=== PATIENT | male | born 1990 | race Hispanic/Latino ===

== ENCOUNTER 2019-07-15 16:07 | Inpatient (IN) ==
[2019-07-15] MEDS ORDERED: NS 1,000 ML IV ONE (16:25)
[2019-07-15] MEDS ORDERED: ZOFRAN IV ONE (16:25)
[2019-07-15] MEDS ORDERED: DILAUDID IV ONE ×2 (16:25→20:16)
[2019-07-15 17:08] LABS: BASO# 0.23 X1000 (0.0-0.2); BASO% 1.4 % (0.0-0.8); EOS# 0.13 X1000 (0.0-0.7); EOS% 0.8 % (0.0-10.0); HEMATOCRIT 44.9 % (42.0-52.0); HEMOGLOBIN 16.8 g/dL (14.0-18.0); IMM GRAN# 0.04 X1000 (0.0-0.04); IMM GRAN% 0.2 % (0.0-0.5); LYMPH% 10.5 % (20.5-51.1); MCH 33.1 PG (27-31); MCHC 37.4 g/dL (33-37); MCV 88.6 FL (81-99); MONO% 8.6 % (1.7-9.3); MPV 12.9 FL (7.4-10.4); NEUT# 12.74 X1000 (1.4-6.5); NEUT% 78.5 % (42.2-75.2); PLT 254 X1000 (130-400); RBC 5.07 XMIL (4.7-6.1); RDW 13.5 % (11.5-14.5); WBC 16.24 X1000 (4.8-10.8)
--- NOTE | 2019-07-15 17:51 | Diag Imaging Result Doc PS360 ---
EXAM: US GB < RUQ (LIMITED) HISTORY: RUQ pain/tenderness TECHNIQUE: Right upper quadrant ultrasound COMPARISON: None. FINDINGS: Normal pancreatic head. The body and tail are predominantly obscured. Questionable 2.3 cm nodule in the pancreatic body. Normal inferior vena cava. No aortic aneurysm. There is fatty infiltration of the liver. Normal gallbladder. No stones. The gallbladder wall is not thickened. The common bile duct measures 3 mm. Normal right kidney. No hydronephrosis. No ascites in the right upper quadrant. IMPRESSION: 1.Fatty infiltration of the liver 2.Questionable pancreatic nodule. Electronically signed by Nelson Estrada 07/15/2019 5:49 PM
[2019-07-15] MEDS ORDERED: ZOSYN 3.375 GM in NS 50 ML IV ONE (18:02)
[2019-07-15 18:20] LABS: ESTIMATED GFR > 60
[2019-07-15 18:23] LABS: AGAP 18; ALB/GLOB RATIO 1.8; ALBUMIN 4.2 g/dL (3.5-5.0); ALKALINE PHOSPHATASE 116 U/L (32-122); BUN 14 mg/dL (8-22); CALCIUM 8.9 mg/dL (8.8-10.2); CHLORIDE 94 mmol/L (98-107); COSMO 264; CREATININE 0.9 mg/dL (0.7-1.2); GLUCOSE 106 mg/dL (70-104); GOT 52 U/L (10-34); GPT 73 U/L (10-44); LIPASE 1210 U/L (13-60); POTASSIUM 3.5 mmol/L (3.5-5.1); SODIUM 131 mmol/L (136-145); TCO2 19 mmol/L (25-35); TOTAL BILIRUBIN 0.46 mg/dL (0.20-1.00); TOTAL PROTEIN 6.6 g/dL (6.3-8.3)
--- NOTE | 2019-07-15 19:07 | Diag Imaging Result Doc PS360 ---
EXAM: CT ABD/PELVIS W/IV CONT ONLY HISTORY: epigastric/RUQ pain TECHNIQUE: CT abdomen and pelvis with intravenous contrast, but without oral contrast. COMPARISON: Recent ultrasound FINDINGS: There is fatty infiltration of the liver. No calcified gallstones or adjacent inflammation. There is prominent inflammation about the pancreas and duodenum. No pancreatic calcifications. No pseudocyst. There is thickening to the wall of the duodenum. No splenomegaly. Normal adrenal glands. Normal kidneys. No hydronephrosis. Normal aorta. No bowel obstruction. Normal appendix. The urinary bladder is distended and normal. Normal prostate. No abscess. IMPRESSION: Duodenitis versus pancreatitis This exam was performed using automated exposure control, adjustment of mA or kV according to patient size, and/or use of iterative reconstruction technique. Electronically signed by Nelson Estrada 07/15/2019 7:05 PM
[2019-07-15 19:28] LABS: URINE SOURCE CLEAN CATCH
[2019-07-15 19:38] LABS: BILIRUBIN URINE NEGATIVE (NEGATIVE); BLOOD URINE NEGATIVE (NEGATIVE); COLOR YELLOW; GLUCOSE URINE NEGATIVE (NEGATIVE); KETONE URINE 100 mg/dL (NEGATIVE); LEUKOCYTES URINE NEGATIVE (NEGATIVE); NITRITE URINE NEGATIVE (NEGATIVE); PH URINE 7.5; PROTEIN URINE NEGATIVE (NEGATIVE); SP GRAVITY URINE 1.027; TURBIDITY URINE CLEAR (CLEAR); UROBILINOGEN URINE NORMAL (NORMAL)
[2019-07-15 19:39] LABS: UR EPITHELIAL CELLS <10 /HPF (<10); URINE BACTERIA NEGATIVE /HPF; URINE RBC <10 /HPF (<10); URINE WBC <10 /HPF (<10)
[2019-07-15] MEDS ORDERED: LR 1,000 ML IV ONE (19:42)
--- NOTE | 2019-07-15 19:49 | PROVIDER DOCUMENTATION ---
This chart was entered by Sobia Davis Scribe, acting as scribe for Lorraine Pal CRNP. HPI-Abdominal Pain/GI Problem - General Stated Complaint: STOMACH PAIN Time Seen by Provider: 07/15/19 16:22 Source: patient, hired hand Allergies/Adverse Reactions: Patient Allergies Allergy/AdvReac Type Severity Reaction Status Date / Time No Known Allergies Allergy Verified 07/15/19 17:02 Home Medications: Home Medication List Medication Instructions Recorded Confirmed Last Taken Type NK [No Home Medications] 07/15/19 07/15/19 Unknown History - History of Present Illness-ABD Nature of Presenting Problems: pt is a 39 yr old male presenting with severe RUQ and epigastric pain with nausea and vomiting onset 0900 this AM. Denies any other complaints. Abdominal Pain Onset Location: reports: RUQ, epigastric Pain Radiation: reports: no radiation Severity in ED: reports: severe Onset/Duration: reports: this morning (0900) Timing: reports: still present, getting worse Exposure to sick contacts?: No Modifying Factors: improves with: nothing Associated Symptoms: reports: diarrhea, nausea, vomiting. denies: constipation, fever/chills, genitourinary problems, shortness of breath Last BM: unsure Dark Stools Present?: reports: none noticed Rectal Bleeding: reports: none Rectal Pain: reports: none Bruising or Bleeding Gums?: No Similar Symptoms Previously?: No Recently seen or treated by another doctor?: No Review of Systems - Adult - REVIEW OF SYSTEMS - ADULT Constitutional: reports: no symptoms reported. denies: chills, fever Eyes: reports: no symptoms reported Ears, Nose, Mouth & Throat: reports: no symptoms reported Cardiovascular: reports: no symptoms reported Respiratory: reports: no symptoms reported Gastrointestinal: reports: abdominal pain, diarrhea, nausea, vomiting Genitourinary: reports: no symptoms reported Musculoskeletal: reports: no symptoms reported Integumentary: reports: no symptoms reported Neurological: reports: no symptoms reported Psychiatric: reports: no symptoms reported Endocrine: reports: no symptoms reported Hematologic/Lymphatic: reports: no symptoms reported Allergic/Immunologic: reports: no symptoms reported All Other Systems: Reviewed and Negative Past History - Adult - PAST MEDICAL HISTORY-ADULT Review of Records: reports: Nursing Assessment Review, Medications Reviewed, Social history reviewed & non-contributory. Major Childhood Illnesses: reports: denies history Cardiovascular: reports: denies history Respiratory: reports: denies history Gastrointestinal: reports: denies history Obstetrical/Gynecological: reports: denies history Genitourinary: reports: denies history Musculoskeletal: reports: denies history Neurological: reports: denies history Endocrine/Immune: reports: denies history Other Conditions: reports: denies history - PRIOR SURGERIES/PROCEDURES Surgical/Procedure History: reports: none - IMMUNIZATION STATUS Childhood Immunizations: See Nurse Assessment Flu Vaccine: See Nurse Assessment - FAMILY HISTORY Family History: reviewed, not pertinent - SOCIAL HISTORY Smoking: denies Substance Use: none/never Alcohol Use Frequency: never Living Situation: family Physical Exam-General - PHYSICAL EXAM-ADULT Initial Vital Signs Reviewed: Yes - CONSTITUTIONAL General Appearance: alert, moderate distress (in pain). negative: lethargic, slow to respond - EYES Eyes: PERRL/EOMI - HEAD, EARS, NOSE, MOUTH & THROAT HENMT: normocephalic/atraumatic, moist mucous membranes - NECK Neck: full range of motion, supple, normal inspection - RESPIRATORY Respiratory: chest non-tender, lungs clear, normal breath sounds, no pleuratic chest pain, no respiratory distress, no accessory muscle use - CARDIOVASCULAR Cardiovascular: normal peripheral pulses, regular rate, rhythm, no gallop, no murmur - GASTROINTESTINAL (ABDOMEN) Abdominal Exam: normal bowel sounds, soft, guarding (epigastric region), tenderness (epigastric, ruq tenderness). negative: distended - LYMPHATIC Lymphatic: no adenopathy - MUSCULOSKELETAL Back Exam: normal inspection, no CVA tenderness Extremity: normal range of motion, non-tender, normal gait, normal inspection - SKIN Integumentary: normal color, warm/dry. negative: cyanosis, diaphoresis, jaundice, mottled, pallor - NEUROLOGIC Neurologic: grossly normal, no motor/sensory deficits - PSYCHIATRIC Psych/Mental Status: normal mood/affect, normal thought content, normal thought process, oriented x 3, tearful Progress - PLAN OF CARE/RESULTS Result Diagrams: 07/15/19 16:47 07/15/19 16:47 - REASSESSMENT Reassessment #1 Time Reassessed: 18:00 Status: improving (Pain improved. Pt asleep, easily arouseable.) Reassessment #2 Time Reassessed: 19:06 Status: other (Pt in agreement with plan to admit.) - EKG 1 Time of EKG reading by physician:: 16:17 EKG Read and Signed by:: Abdirizak Brewster EKG Interpretation (*Must complete 3 of following elements*): Abnormal Rate: 59 Rhythm: sinsu armida with sinus arrhythmia [place]: normal QRS: LVH (with STTW changes) [place] Interval: normal - CT/MRI 1 CT Study: Abdomen, Pelvis ([facility] - [address] [facility], [address], [place] [address] [facility] - [address] [place] [address] Department of Imaging Patient: EROS AGUILLONADM Date: 07/15/19#: [id number] : 04/06/1980ADM Status: REG ERAcct#: [id number] Age/Sex: 39/MRoom/Bed: Loc: ED Ordering Physician: Lorraine Pal Family Physician: None,PCP Reason for Procedure: epigastric/RUQ pain Signed EXAM: CT ABD/PELVIS W/IV CONT ONLY HISTORY: epigastric/RUQ pain TECHNIQUE: CT abdomen and pelvis with intravenous contrast, but without oral contrast. COMPARISON: Recent ultrasound FINDINGS: There is fatty infiltration of the shea er. No calcified gallstones or adjacent inflammation. There is prominent inflammation about the pancreas and duodenum. No pancreatic calcifications. No pseudocyst. There is thickening to the wall of the duodenum. No splenomegaly. Normal adrenal glands. Normal kidneys. No hydronephrosis. Normal aorta. No bowel obstruction. Normal appendix. The urinary bladder is distended and normal. Normal prostate. No abscess. IMPRESSION: Duodenitis versus pancreatitis This exam was performed using automated exposure control, adjustment of mA or kV according to patient size, and/or use of iterative reconstruction technique. Electronically signed by Nelson Estrada 07/15/2019 7:05 PM 07/15/19 1905 Interpreting Physician: Nelson Estrada MD Dictated Date/Time: 07/15/191900 cc: Lorraine Pal; None,PCP) - ULTRASOUND (By Radiology) 1 US Study: Gallbladder ([facility] - [address] , [address], [place] [address] [facility] - [address] [place] [address] Department of Imaging Patient: EROS AGUILLONADM Date: 07/15/19MR#: [id number] : 04/06/1980ADM Status: PRE ERAcct#: [id number] Age/Sex: 39/MRoom/Bed: Loc: ED Ordering Physician: Lorraine Pal Family Physician: None,PCP Reason for Procedure: RUQ pain/tenderness Signed EXAM: US GB < RUQ (LIMITED) HISTORY: RUQ pain/tenderness TECHNIQUE: Right upper quadrant ultrasound COMPARISON: None. FINDINGS: Normal pancreatic head. The body and tail are predominantly obscured. Questionable 2.3 cm nodule in the pancreatic body. Normal inferior vena cava. No aortic aneurysm. There is fatty infiltration of the liver. Normal gallbladder. No stones. The gallbladder wall is not thickened. The common bile duct measures 3 mm. Normal right kidney. No hydronephrosis. No ascites in the right upper quadrant. IMPRESSION: 1.Fatty infiltration of the liver 2.Questionable pancreatic nodule. Electronically signed by Nelson Estrada 07/15/2019 5:49 PM 07/15/199 Interpreting Physician: Nelson Estrada MD Dictated Date/Time: 07/15/191746 cc: Lorraine Pal; None,PCP) - CONSULTS/PCP/HOSPITALIST Notification #1 *Consult/PCP/Hospitalist*: Dr. Bourgeois Time Discussed: 19:48 Reason/Comments: admission- pancreatitis, possible duodenitis Consult Disposition: Will see in ED, Admit Departure - Departure Date of Disposition Decision: 07/15/19 Time of Disposition Decision: 18:56 DIAGNOSIS: Fatty liver, Duodenitis Acute pancreatitis Qualifiers: Pancreatitis type: unspecified pancreatitis type Acute pancreatitis complication: unspecified Qualified Code(s): K85.90 - Acute pancreatitis without necrosis or infection, unspecified Abdominal pain Qualifiers: Abdominal location: unspecified location Qualified Code(s): R10.9 - Unspecified abdominal pain Disposition: ADMITTED INPATIENT 09 Certified Medical Emergency: Emergent Condition: Stable Referrals and Follow-Ups: None,PCP [Primary Care Provider] - - Critical Care Note This patient required my direct & personal management of CC.: No Attestation - Physician/ LEAH Attestation Patient care was provided by Advanced Practice Provider:: Yes Advanced Practice Provider:: Lorraine Pal Advanced Practice Provider documentation review:: The Mid-level provider documentation, treatment plan and medical decision making was reviewed by the physician who agrees with all treatment and medical decision making by the MLP. The physician spent face to face time with patient:: Yes (Dr. Brewster) Advanced Practice Provider documentation review:: Supervising physician onsite and consulted in the evaluation and care of this patient. The physician did have a face to face encounter with the patient. This chart was documented by the indicated scribe, (Sobia Davis Scribe) and accurately reflects the services I performed and decisions made by me, Lorraine Pal CRNP, as attested by the provider's signature.
[2019-07-15] MEDS ORDERED: OFIRMEV 1000 MG/ISOTONIC SOLN 1,000 MG/100 ML BOTTLE IV SCH (20:30)
[2019-07-15 20:52] LABS: HEMOGLOBIN A1C 5.3 % (4.8-6.0)
--- NOTE | 2019-07-15 21:07 | HISTORY AND PHYSICAL ---
REASON FOR ADMISSION: One-day history of right upper quadrant and epigastric pain. HISTORY OF PRESENT ILLNESS: Mr. Brian is a 39-year-old man with no significant past medical history. He comes in today complaining of right upper quadrant epigastric pain, which he states started today. He says the pain radiates to his back. He admits to having nausea and has vomited once, at least in the ER, bilious content. History was very difficult to take from the patient because at the time I had seen him, he had received IV Dilaudid within an hour and he was somewhat drowsy. Suffice it to say, I had to keep waking him up to get some information from him. He denies any fever, chills, or any cardiorespiratory complaints. No polyuria or polydipsia. He did, however, tell me that he has been having dysuria for 1 week and I am not sure if he was confused on the medication, but he states he has had blood in his urine. He denies any bleeding from anywhere else, however. No focal neurological complaints. He denies any use of any recent [id number] medication. He says he takes medication for pain, but cannot remember the name. REVIEW OF SYSTEMS: Somewhat limited due to the fact the patient was very drowsy from sedation. ALLERGIES: He denies allergies. MEDICATIONS: He takes some unspecified pain medication for diffuse aches and pains. FAMILY HISTORY: He denies any diabetes or heart disease. He denies any surgery. Denies drinking, smoking, or using drugs. LABORATORY WORK: White count 6000, hemoglobin and hematocrit 16 and 44, platelets 234,000, neutrophils 78, 1.4, basophils. Sodium 131, potassium 3.5, BUN 14, creatinine 0.9, bicarb 19, anion gap 18, glucose 106, AST 52, ALT 73, lipase 1200. Serum alcohol was 0. Urinalysis positive for ketones. Specific gravity was 1.027. CT of the abdomen showed pancreatitis versus duodenitis and also fatty liver disease. PHYSICAL EXAMINATION: GENERAL: Drowsy, young man who is in mild distress from the pain. He is alert and oriented to person, place, and time. VITAL SIGNS: Heart rate 60, respiratory rate is 16, temperature is 97.9 degrees. He is 98% on 2 L. HEAD: Normocephalic and atraumatic. EYES: His pupils are miotic, but reactive. No icterus or pallor. OROPHARYNX: No cyanosis. NECK: Supple. No JVD visualized. No thyromegaly visualized. CHEST: Clear to auscultation. Good air entry in both lung corcoran. CARDIOVASCULAR: First and second heart sounds heard. No gallops, murmurs, rubs. Rhythm is regular. ABDOMEN: Full, soft, with marked tenderness in the epigastrium and right upper quadrant area. No peritoneal signs. Bowel sounds are hypoactive. RECTAL: Deferred at this time. EXTREMITIES: The patient has slightly diminished pulse volumes distally in all extremities, regular, symmetrical. No peripheral cyanosis or edema. NEUROLOGICAL: No gross focal neurological deficits. SKIN: Intact. No breakdown, lesions or erythema. MUSCULOSKELETAL: Exam is grossly normal. ASSESSMENT: 1. Acute pancreatitis. 2. Probable duodenitis. 3. Elevated transaminases, probably related to steatohepatitis. 4. Hypokalemia. PLAN: 1. The etiology of patient's pancreatitis is yet to be determined at this point in time. He does not drink, nor does he have any evidence of cholelithiasis, although there is still the possibility of microlithiasis. 2. We will check lipid panel for hypertriglyceridemia as a possible cause. 3. In the interim, we will keep patient n.p.o., administer lactated Ringer's, analgesia, antiemetics, and also proton pump inhibitors due to the possibility of pancreatitis induced duodenitis. 4. If patient fails to improve in the next 24 hours, GI may be consulted for further input. cc: Chanda Bourgeois MD
[2019-07-15] MEDS ORDERED: ZOFRAN IV PRN (21:18)
[2019-07-15] MEDS ORDERED: SODIUM CHLORIDE 0.9% INJ ONE (21:18)
[2019-07-15] MEDS ORDERED: TYLENOL PO PRN (21:18)
[2019-07-15] MEDS ORDERED: PROTONIX IV ONE (21:18)
[2019-07-15] MEDS: LR 1,000 ML IV SCH (22:31)
[2019-07-15] MEDS: LOVENOX SUBQ SCH (22:31)
[2019-07-15] MEDS: DILAUDID IV PRN (22:39)
[2019-07-16] MEDS: LR 1,000 ML IV SCH ×3 (03:28→15:25)
[2019-07-16] MEDS: DILAUDID IV PRN ×3 (05:08→20:28)
[2019-07-16 06:52] LABS: BASO# 0.02 X1000 (0.0-0.2); BASO% 0.2 % (0.0-0.8); HEMATOCRIT 43.8 % (42.0-52.0); HEMOGLOBIN 15.6 g/dL (14.0-18.0); IMM GRAN# 0.02 X1000 (0.0-0.04); IMM GRAN% 0.2 % (0.0-0.5); LYMPH# 0.75 X1000 (1.2-3.4); LYMPH% 6.9 % (20.5-51.1); MCH 31.8 PG (27-31); MCHC 35.6 g/dL (33-37); MCV 89.2 FL (81-99); MONO# 0.51 X1000 (0.11-0.59); MONO% 4.7 % (1.7-9.3); MPV 12.1 FL (7.4-10.4); NEUT# 9.53 X1000 (1.4-6.5); PLT 188 X1000 (130-400); RBC 4.91 XMIL (4.7-6.1); RDW 13.5 % (11.5-14.5); WBC 10.83 X1000 (4.8-10.8)
[2019-07-16 07:16] LABS: BANDS 8 % (0-1); LYMPHS 10 % (21-51); SEGS 80 % (42-75)
[2019-07-16 07:39] LABS: AGAP 14; ALB/GLOB RATIO 1.4; ALBUMIN 3.3 g/dL (3.5-5.0); ALKALINE PHOSPHATASE 81 U/L (32-122); BUN 8 mg/dL (8-22); CHLORIDE 99 mmol/L (98-107); CHOLESTEROL 209 mg/dL (0-200); COSMO 266; CREATININE 0.7 mg/dL (0.7-1.2); ESTIMATED GFR > 60; GLUCOSE 89 mg/dL (70-104); GPT 50 U/L (10-44); HDL 16 mg/dL (35-55); MAGNESIUM 1.5 mg/dL (1.5-2.7); POTASSIUM 3.5 mmol/L (3.5-5.1); TCO2 21 mmol/L (25-35); TOTAL BILIRUBIN 0.57 mg/dL (0.20-1.00); TOTAL PROTEIN 5.7 g/dL (6.3-8.3); TRIGLYCERIDES 1580 mg/dL (39-160)
[2019-07-16 07:41] LABS: CALCIUM 7.1 mg/dL (8.8-10.2); GOT 41 U/L (10-34); SODIUM 134 mmol/L (136-145)
[2019-07-16] MEDS: LOFIBRA PO SCH (17:14)
--- NOTE | 2019-07-16 18:51 | PROGRESS NOTE ---
DATE: 07/16/2019 INTERVAL HISTORY: Mr. Brian continues to have tachycardia and abdominal pain. He is thirsty and wanted to drink something. I used rack pusher services to elicit history and accordingly I learned that day before yesterday he started having abdominal pain and nausea and vomiting after drinking water. He states he recently migrated from [place]. He is not fluent with [place]. REVIEW OF SYSTEMS: Positive for nausea. Positive for vomiting. Positive for abdominal pain. Positive for thirst. PHYSICAL EXAMINATION: vital signs: Temperature of 98 degrees, pulse is 86, respiratory 18, blood pressure 110/66, and he is saturating 99% on room air. general: In mild to moderate distress because of abdominal pain. heent: Oral cavity is dry. Lungs: Air entry bilaterally equal. No wheeze, rhonchi, or crackles. Cardiovascular: S1, S2 normal. Tachycardic on my examination. No murmur, rub, or gallop. Abdomen: Soft. He has generalized tenderness. Hypoactive bowel sounds. Abdomen appears firm though there is no rigidity. I could not do deep palpation to elicit any rebound. Extremities: He does not have any lower extremity edema. Neurologic: He is alert and oriented x3 and has been following commands. ASSESSMENT AND PLAN: Acute pancreatitis. Likely induced by hypertriglyceridemia which was detected to be as high as 1500. I will continue intravenous fluid resuscitation with lactated Ringer's. I will treat his acute duodenitis with intravenous pantoprazole and start him on clear liquid diet. I will also start him on fenofibrate for his hypertriglyceridemia. I will continue intravenous hydromorphone as needed for pain. His hypocalcemia and hypoalbuminemia are a bad prognosticator and we will keep a close eye over his laboratories. So far blood culture has not shown any growth. He has not had any fever to suggest sepsis. I will continue to monitor him in bed. Through the rack pusher I allowed him to ask questions. All of his questions have been answered. cc: Salbador Grant MD
[2019-07-16] MEDS: SODIUM CHLORIDE 0.9% INJ SCH (20:20)
[2019-07-16] MEDS: LOVENOX SUBQ SCH (20:21)
[2019-07-16] MEDS ORDERED: PROTONIX IV SCH (20:30)
[2019-07-17] MEDS: DILAUDID IV PRN ×5 (04:12→23:25)
[2019-07-17 06:59] LABS: BASO# 0.02 X1000 (0.0-0.2); BASO% 0.2 % (0.0-0.8); EOS# 0.12 X1000 (0.0-0.7); EOS% 1.2 % (0.0-10.0); HEMATOCRIT 43.2 % (42.0-52.0); HEMOGLOBIN 14.8 g/dL (14.0-18.0); IMM GRAN# 0.03 X1000 (0.0-0.04); IMM GRAN% 0.3 % (0.0-0.5); LYMPH# 1.11 X1000 (1.2-3.4); LYMPH% 11.1 % (20.5-51.1); MCH 30.9 PG (27-31); MCHC 34.3 g/dL (33-37); MCV 90.2 FL (81-99); MONO# 0.46 X1000 (0.11-0.59); MONO% 4.6 % (1.7-9.3); MPV 12.8 FL (7.4-10.4); NEUT# 8.27 X1000 (1.4-6.5); NEUT% 82.6 % (42.2-75.2); PLT 168 X1000 (130-400); RBC 4.79 XMIL (4.7-6.1); RDW 13.9 % (11.5-14.5); WBC 10.01 X1000 (4.8-10.8)
[2019-07-17 07:04] LABS: INR 1.31; PROTIME 16.5 Seconds (11.0-16.0)
[2019-07-17 07:06] LABS: PTT 34.7 Seconds (22.3-41.8)
[2019-07-17 07:32] LABS: AGAP 13; ALB/GLOB RATIO 1.1; ALBUMIN 2.6 g/dL (3.5-5.0); ALKALINE PHOSPHATASE 70 U/L (32-122); BUN 9 mg/dL (8-22); CALCIUM 7.4 mg/dL (8.8-10.2); CHLORIDE 96 mmol/L (98-107); COSMO 260; CREATININE 0.8 mg/dL (0.7-1.2); ESTIMATED GFR > 60; GLUCOSE 74 mg/dL (70-104); GOT 25 U/L (10-34); GPT 30 U/L (10-44); POTASSIUM 3.4 mmol/L (3.5-5.1); SODIUM 131 mmol/L (136-145); TCO2 22 mmol/L (25-35); TOTAL BILIRUBIN 0.67 mg/dL (0.20-1.00)
[2019-07-17] MEDS: LR 1,000 ML IV SCH ×4 (08:29→22:26)
[2019-07-17] MEDS: LOFIBRA PO SCH (08:30)
[2019-07-17] MEDS: PROTONIX IV SCH ×2 (08:33→18:46)
--- NOTE | 2019-07-17 09:31 | PROGRESS NOTE ---
DATE: 07/17/2019 INTERVAL HISTORY: Mr. Brian's vitals were unremarkable. He continues to have abdominal pain. I used motor vehicle parts interpreter services to communicate with him. He complains of persistent abdominal pain. He complains of nausea. He states that the pain has pretty much remained the same as yesterday and has not shown any signs of improvement. He also mentioned that he was admitted for similar complaints probably 3 months ago at [facility]. He was there for 3 hours and was discharged home. I have requested those records. He denies any known allergy to intravenous contrast. VITALS: Currently, temperature 98.8 degrees, pulse 95, respiratory rate 20, blood pressure 121/63, he is saturating 95% on room air. PHYSICAL EXAMINATION: Mr. Brian denies any new complaints. Oral cavity is dry. Lungs: Air entry bilaterally equal. No wheeze, rhonchi, or crackles. He continues to have shallow respirations. Cardiovascular: S1, S2 normal. No murmur, rub, or gallop. Abdomen: Active bowel sounds. Generalized tenderness. I could not do deep palpation because of severe abdominal pain. No lower extremity edema. He is alert and oriented x3. LABS: Declining WBCs to 10,000, hemoglobin 14.8, platelet count 168,000. INR is 1.3. He does have hyponatremia with sodium 131, chloride 96, and potassium of 3.4, his BUN is 9, creatinine 0.8. His lactate is pending. His liver function tests are normalizing. MICROBIOLOGY: Blood culture did not have any growth. ASSESSMENT AND PLAN: 1. Acute pancreatitis and acute duodenitis. Continue lactated Ringer's, intravenous fluids, intravenous hydromorphone for pain management, and increase the frequency of intravenous pantoprazole to every 12 hours. I will continue intravenous Zofran as needed for vomiting. It is possible his acute pancreatitis is related to hypertriglyceridemia and I have started him on fenofibrate. I will get a repeat CT scan of the abdomen and pelvis with contrast to evaluate his duodenitis and pancreatitis better to rule out any pancreatic necrosis, to rule out any duodenal perforation considering he continues to have severe abdominal pain and his abdomen has a firm feel to it with guarding. 2. Others. Continue enoxaparin for deep venous thrombosis prophylaxis; his hypokalemia is currently being repleted. 3. Disposition. I will continue to monitor the patient inside the hospital as I await CT scan of the abdomen. Plan of care was discussed with him. His questions have been satisfactorily answered. cc: Salbador Grant MD
--- NOTE | 2019-07-17 09:51 | Diag Imaging Result Doc PS360 ---
EXAM: CT ABD/PELVIS W/PO AND IV CON - 07/17/2019 HISTORY: Persistent abd pain. Eval for duodenal perf/pancreatitis TECHNIQUE: CT abdomen/pelvis with oral and intravenous contrast COMPARISON: 07/15/2019 CT abdomen/pelvis with intravenous contrast FINDINGS: There has been development of bilateral pleural effusions with adjacent dependent/compressive atelectasis. There is been interval increase in peripancreatic inflammation/edema. There is increased extension of the peripancreatic formation/edema probably peripancreatic region, particularly posterior laterally and inferiorly. There is a small to moderate amount of ascites. These findings are consistent with worsened acute pancreatitis. There is no discrete pancreatic necrosis. There is no discrete focal pseudocyst. There is some dense bile in gallbladder. There are no discrete calcified gallstones or substantial gallbladder wall thickening identified. There is no extraluminal gas collection to suggest perforated ulcer. There is no evidence of bowel obstruction. There is no free air or abscess identified. There is possibly mild fatty infiltration of the liver. There is no evidence of focal liver lesion, other than a tiny cyst. There are no substantial abnormalities of the spleen, adrenal glands, or pancreas5. There is stable borderline retroperitoneal lymph nodes. IMPRESSION: Increased findings of acute pancreatitis compared to prior. No discrete pancreatic necrosis. No evidence of perforated ulcer. This exam was performed using automated exposure control, adjustment of mA or kV according to patient size, and/or use of iterative reconstruction technique. Electronically signed by Darren Luong 07/17/2019 9:48 AM
[2019-07-17] MEDS: POTASSIUM CHLORIDE 20 MEQ/SWI 20 MEQ/100 ML IVPB IV SCH ×2 (12:22→14:34)
[2019-07-17] MEDS: LOVENOX SUBQ SCH (22:29)
[2019-07-18] MEDS: DILAUDID IV PRN ×6 (04:02→21:42)
[2019-07-18] MEDS: SODIUM CHLORIDE 0.9% INJ SCH (06:30)
[2019-07-18] MEDS: PROTONIX IV SCH ×2 (06:30→18:36)
[2019-07-18 07:30] LABS: AGAP 12; ALB/GLOB RATIO 1.4; ALBUMIN 2.9 g/dL (3.5-5.0); ALKALINE PHOSPHATASE 68 U/L (32-122); BUN 5 mg/dL (8-22); CALCIUM 7.7 mg/dL (8.8-10.2); CHLORIDE 97 mmol/L (98-107); COSMO 262; CREATININE 0.6 mg/dL (0.7-1.2); ESTIMATED GFR > 60; GLUCOSE 76 mg/dL (70-104); GOT 19 U/L (10-34); GPT 23 U/L (10-44); POTASSIUM 3.7 mmol/L (3.5-5.1); SODIUM 133 mmol/L (136-145); TCO2 24 mmol/L (25-35); TOTAL BILIRUBIN 0.59 mg/dL (0.20-1.00)
--- NOTE | 2019-07-18 08:16 | EKG Report ---
Test Performed on : 07/15/2019 4:33:25 PM Test Reason : ED. NO EKG ORDER FOR MUSE Blood Pressure : / mmHG Vent. Rate : 059 BPM Atrial Rate : 059 BPM P-R Int : 130 ms QRS Dur : 086 ms QT Int : 466 ms P-R-T Axes : 091 083 049 degrees QTc Int : 461 ms Sinus bradycardia. with sinus arrhythmia. Minimal voltage criteria for LVH, may be normal variant Borderline ECG No previous ECGs available Unconfirmed Result
[2019-07-18] MEDS: LOFIBRA PO SCH (10:20)
[2019-07-18] MEDS: LR 1,000 ML IV SCH ×4 (10:21→17:37)
[2019-07-18] MEDS: ZOSYN 3.375 GM in NS 50 ML IV SCH ×2 (13:36→21:41)
[2019-07-18 14:33] LABS: BASO# 0.02 X1000 (0.0-0.2); BASO% 0.2 % (0.0-0.8); EOS# 0.24 X1000 (0.0-0.7); EOS% 2.5 % (0.0-10.0); HEMATOCRIT 41.2 % (42.0-52.0); IMM GRAN# 0.05 X1000 (0.0-0.04); IMM GRAN% 0.5 % (0.0-0.5); LYMPH# 0.94 X1000 (1.2-3.4); MCH 30.9 PG (27-31); MCV 90.9 FL (81-99); MONO# 0.65 X1000 (0.11-0.59); MONO% 6.9 % (1.7-9.3); MPV 11.6 FL (7.4-10.4); NEUT# 7.52 X1000 (1.4-6.5); NEUT% 79.9 % (42.2-75.2); PLT 196 X1000 (130-400); RBC 4.53 XMIL (4.7-6.1); WBC 9.42 X1000 (4.8-10.8)
[2019-07-18] MEDS ORDERED: LR 1,000 ML IV ONE (16:36)
[2019-07-18 16:58] LABS: AGAP 11; ALB/GLOB RATIO 1.5; ALBUMIN 3.2 g/dL (3.5-5.0); ALKALINE PHOSPHATASE 78 U/L (32-122); BUN 5 mg/dL (8-22); CALCIUM 8.1 mg/dL (8.8-10.2); CHLORIDE 92 mmol/L (98-107); COSMO 255; CREATININE 0.7 mg/dL (0.7-1.2); ESTIMATED GFR > 60; GLUCOSE 78 mg/dL (70-104); GOT 22 U/L (10-34); GPT 23 U/L (10-44); POTASSIUM 3.2 mmol/L (3.5-5.1); SODIUM 129 mmol/L (136-145); TCO2 26 mmol/L (25-35); TOTAL BILIRUBIN 0.72 mg/dL (0.20-1.00); TOTAL PROTEIN 5.3 g/dL (6.3-8.3)
--- NOTE | 2019-07-18 17:17 | PROGRESS NOTE ---
DATE: 07/18/2019 SUBJECTIVE: The patient is still having a lot of pain. He does look like he is in a lot of pain. OBJECTIVE: Vital Signs: He has a little bit of a temp today. Blood pressure is 126/77, heart rate 109, respiratory rate 16, temp 100.4 degrees. Cardiovascular: Tachy, somewhat hyperdynamic. Lungs: Breath sounds clear to auscultation. GI: Soft, nontender, nondistended. Bowel sounds are positive. He is chip applying machine tender to palpation on exam. LABORATORY DATA: White count is down to 9, hemoglobin and hematocrit 14 and 41, platelets 196,000. Sodium 133, albumin 2.9. Lipase is down to 111 from 1,210 which is a big improvement. He does have very elevated triglycerides though, 1,580. PROBLEM LIST: 1. Acute pancreatitis. We will continue IV fluids, pain control, IV PPI, although there is little evidence antibiotics play a role here. He does not have pancreatic necrosis. Until he is afebrile I am just going to cover him with Zosyn. We will bolus him another liter today and increase his IV fluids. His numbers look better. His hematocrit is down below 44% which is a positive predictor, although we are looking at that has been achieved over 4 days. He is still clinically looks like he is uncomfortable. I think pancreatitis may be multifactorial, not just alcohol abuse but also hypertriglyceridemia. This may need to be addressed as an outpatient. 2. Alcohol abuse. We counseled on cessation. DISPOSITION: Pending clinical status but I do not think he is ready to go anywhere just yet, maybe another 1 to 2 days. cc: Rogelio Alvarado MD
[2019-07-18] MEDS: LOVENOX SUBQ SCH (21:41)
[2019-07-18] MEDS: NORCO-7.5 PO PRN (23:19)
[2019-07-19] MEDS: DILAUDID IV PRN ×2 (02:23→07:51)
[2019-07-19] MEDS: LR 1,000 ML IV SCH ×4 (03:00→13:45)
[2019-07-19] MEDS: ZOSYN 3.375 GM in NS 50 ML IV SCH ×4 (03:02→20:23)
[2019-07-19 06:29] LABS: BASO# 0.03 X1000 (0.0-0.2); BASO% 0.3 % (0.0-0.8); EOS% 4.4 % (0.0-10.0); HEMATOCRIT 38.7 % (42.0-52.0); HEMOGLOBIN 13.2 g/dL (14.0-18.0); IMM GRAN# 0.06 X1000 (0.0-0.04); IMM GRAN% 0.7 % (0.0-0.5); LYMPH# 1.07 X1000 (1.2-3.4); LYMPH% 11.8 % (20.5-51.1); MCH 31.2 PG (27-31); MCHC 34.1 g/dL (33-37); MCV 91.5 FL (81-99); MONO# 1.04 X1000 (0.11-0.59); MONO% 11.5 % (1.7-9.3); MPV 11.5 FL (7.4-10.4); NEUT# 6.45 X1000 (1.4-6.5); NEUT% 71.3 % (42.2-75.2); PLT 200 X1000 (130-400); RBC 4.23 XMIL (4.7-6.1); RDW 13.8 % (11.5-14.5); WBC 9.05 X1000 (4.8-10.8)
[2019-07-19] MEDS: NORCO-7.5 PO PRN ×3 (06:29→20:23)
[2019-07-19] MEDS: PROTONIX IV SCH ×2 (06:36→18:04)
[2019-07-19] MEDS: SODIUM CHLORIDE 0.9% INJ SCH ×2 (06:36→18:05)
[2019-07-19] MEDS: LOFIBRA PO SCH ×2 (07:51→10:47)
[2019-07-19] MEDS ORDERED: ZOSYN ONE (13:11)
[2019-07-19] MEDS ORDERED: ATIVAN IV ONE (16:18)
[2019-07-19] MEDS ORDERED: ATIVAN IV PRN (16:18)
--- NOTE | 2019-07-19 16:42 | PROGRESS NOTE ---
DATE: 07/19/2019 SUBJECTIVE: He does not look as toxic as he did before. He is still having some pain but overall has improved. No nausea, no vomiting. OBJECTIVE: Vital signs: I do not think he has had any more fevers. Blood pressure is 127/75, heart rate of 111, respiratory rate 18, temperature 99 degrees, 94% on room air. Cardiovascular: He is still a bit tachy. I am not entirely sure if that is from the pancreatitis or possibly some withdrawal. I am going to start him on a banana bag in addition to his LR. Again, regular rate and rhythm. Pulmonary: Bilateral breath sounds clear to auscultation. 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 No rebound. No guarding. LABORATORY DATA: White count 9, hemoglobin and hematocrit 13 and 38, platelets 200,000. I do not have a basic today except lipase is 62. ASSESSMENT AND PLAN: 1. Overall I think he is improving, probably advance diet tomorrow if he is stable, may be able to go home. 2. Alcohol abuse. He was advised on cessation. He does not have any p.r.n. Ativan. Probably will give him a little bit of Ativan and see if he will relax and continue to follow. DISPOSITION: Anticipate discharge tomorrow. cc: Rogelio Alvarado MD
[2019-07-19] MEDS: POTASSIUM CHLORIDE 20 MEQ, MAGNESIUM SULFATE 2 GM, THIAMINE 100 MG, FOLIC ACID 1 MG, M.... IV SCH ×6 (18:10)
[2019-07-19] MEDS: LOVENOX SUBQ SCH (20:23)
[2019-07-20] MEDS: LR 1,000 ML IV SCH ×5 (00:11→18:56)
[2019-07-20] MEDS: DILAUDID IV PRN ×5 (00:37→22:48)
[2019-07-20] MEDS: ZOSYN 3.375 GM in NS 50 ML IV SCH ×3 (02:59→14:15)
[2019-07-20] MEDS: NORCO-7.5 PO PRN (03:01)
[2019-07-20] MEDS: POTASSIUM CHLORIDE 20 MEQ, MAGNESIUM SULFATE 2 GM, THIAMINE 100 MG, FOLIC ACID 1 MG, M.... IV SCH ×12 (06:19→14:20)
[2019-07-20 06:24] LABS: BASO# 0.02 X1000 (0.0-0.2); BASO% 0.2 % (0.0-0.8); EOS# 0.42 X1000 (0.0-0.7); EOS% 5.1 % (0.0-10.0); HEMATOCRIT 39.2 % (42.0-52.0); HEMOGLOBIN 13.1 g/dL (14.0-18.0); IMM GRAN# 0.05 X1000 (0.0-0.04); IMM GRAN% 0.6 % (0.0-0.5); LYMPH# 0.86 X1000 (1.2-3.4); LYMPH% 10.4 % (20.5-51.1); MCH 30.7 PG (27-31); MCHC 33.4 g/dL (33-37); MCV 91.8 FL (81-99); MONO# 1.11 X1000 (0.11-0.59); MONO% 13.4 % (1.7-9.3); MPV 10.7 FL (7.4-10.4); NEUT# 5.81 X1000 (1.4-6.5); NEUT% 70.3 % (42.2-75.2); PLT 243 X1000 (130-400); RBC 4.27 XMIL (4.7-6.1); RDW 13.8 % (11.5-14.5); WBC 8.27 X1000 (4.8-10.8)
[2019-07-20 06:54] LABS: AGAP 10; ALB/GLOB RATIO 0.9; ALBUMIN 2.9 g/dL (3.5-5.0); ALKALINE PHOSPHATASE 94 U/L (32-122); BUN 3 mg/dL (8-22); CALCIUM 8.1 mg/dL (8.8-10.2); CHLORIDE 100 mmol/L (98-107); COSMO 272; CREATININE 0.7 mg/dL (0.7-1.2); ESTIMATED GFR > 60; GLUCOSE 124 mg/dL (70-104); GOT 19 U/L (10-34); GPT 20 U/L (10-44); LIPASE 43 U/L (13-60); POTASSIUM 3.3 mmol/L (3.5-5.1); SODIUM 137 mmol/L (136-145); TCO2 27 mmol/L (25-35); TOTAL BILIRUBIN 0.55 mg/dL (0.20-1.00); TOTAL PROTEIN 6.1 g/dL (6.3-8.3)
[2019-07-20] MEDS: SODIUM CHLORIDE 0.9% INJ SCH ×2 (07:01→17:21)
[2019-07-20] MEDS: PROTONIX IV SCH ×3 (07:01→20:42)
[2019-07-20] MEDS ORDERED: ZOSYN ONE (09:20)
[2019-07-20] MEDS: LOFIBRA PO SCH (09:27)
[2019-07-20] MEDS: POTASSIUM CHLORIDE 20 MEQ/SWI 20 MEQ/100 ML IVPB IV SCH ×2 (18:03→20:42)
[2019-07-20 18:28] LABS: URINE SOURCE CLEAN CATCH
--- NOTE | 2019-07-20 18:30 | PROGRESS NOTE ---
DATE: 07/20/2019 SUBJECTIVE: Patient has no major complaints. OBJECTIVE: Blood pressure is 122/70, heart rate 102, respiratory rate of 18, temperature afebrile, and 98% on room air.Cardiovascular: Regular rate and rhythm. Pulmonary: Bilateral breath sounds. Clear to auscultation. GI: Soft, nontender, and nondistended. Bowel sounds are positive. LABORATORY: White count 8, hemoglobin and hematocrit 13 and 39, and platelets 243,000, potassium 3.3, and albumin 2.9. His lipase is down to 43, but he is having persistent fevers. PROBLEMS: 1. Acute on chronic pancreatitis or acute pancreatitis. He seems to be doing better. We are going to continue to see how he does, but it is unclear if the fevers are related to pancreatitis, is he developing infected pseudocyst. He does not look too bad except for the fevers and persistent tachycardia. 2. Alcohol withdrawal syndrome. It is certainly possible this could be some withdrawal, but overall he is improving. 3. Fevers. We will check a UA and chest x-ray. If he has persistent fevers, I am going to repeat a CT to evaluate for infection. I have also consulted GI for their opinion. He is on Zosyn. This will be day 2. Continue to follow closely. cc: Rogelio Alvarado MD MTDD
[2019-07-20 18:33] LABS: BILIRUBIN URINE NEGATIVE (NEGATIVE); BLOOD URINE NEGATIVE (NEGATIVE); COLOR YELLOW; GLUCOSE URINE NEGATIVE (NEGATIVE); KETONE URINE NEGATIVE (NEGATIVE); LEUKOCYTES URINE NEGATIVE (NEGATIVE); NITRITE URINE NEGATIVE (NEGATIVE); PROTEIN URINE TRACE mg/dL (NEGATIVE); SP GRAVITY URINE 1.009; TURBIDITY URINE CLEAR (CLEAR); UROBILINOGEN URINE NORMAL (NORMAL)
--- NOTE | 2019-07-20 18:33 | Diag Imaging Result Doc PS360 ---
EXAM: CHEST-2 VIEWS HISTORY: fever TECHNIQUE: Two views COMPARISON: None. FINDINGS: There are left lower lobe infiltrates. There are small bilateral pleural effusions with basilar atelectasis. No cardiomegaly. No pulmonary edema. IMPRESSION: Basilar infiltrates with small pleural effusions Electronically signed by Nelson Estrada 07/20/2019 6:30 PM
[2019-07-20 18:35] LABS: UR EPITHELIAL CELLS <10 /HPF (<10); URINE BACTERIA NEGATIVE /HPF; URINE RBC <10 /HPF (<10); URINE WBC <10 /HPF (<10)
[2019-07-20] MEDS: LOVENOX SUBQ SCH (20:42)
[2019-07-21] MEDS: ZOSYN 3.375 GM in NS 50 ML IV SCH ×5 (01:03→18:32)
[2019-07-21] MEDS: SODIUM CHLORIDE 0.9% INJ SCH (04:44)
[2019-07-21] MEDS: PROTONIX IV SCH ×3 (04:44→18:32)
[2019-07-21] MEDS: NORCO-7.5 PO PRN ×3 (04:47→20:03)
[2019-07-21] MEDS: LR 1,000 ML IV SCH ×4 (05:46→17:38)
[2019-07-21 07:15] LABS: BASO# 0.01 X1000 (0.0-0.2); BASO% 0.1 % (0.0-0.8); EOS# 0.32 X1000 (0.0-0.7); HEMATOCRIT 40.4 % (42.0-52.0); HEMOGLOBIN 13.2 g/dL (14.0-18.0); IMM GRAN# 0.04 X1000 (0.0-0.04); IMM GRAN% 0.4 % (0.0-0.5); LYMPH# 1.01 X1000 (1.2-3.4); LYMPH% 9.4 % (20.5-51.1); MCH 30.1 PG (27-31); MCHC 32.7 g/dL (33-37); MONO# 0.98 X1000 (0.11-0.59); MONO% 9.1 % (1.7-9.3); MPV 10.6 FL (7.4-10.4); NEUT# 8.42 X1000 (1.4-6.5); PLT 297 X1000 (130-400); RBC 4.39 XMIL (4.7-6.1); RDW 13.5 % (11.5-14.5); WBC 10.78 X1000 (4.8-10.8)
[2019-07-21] MEDS: DILAUDID IV PRN ×2 (07:21→17:31)
[2019-07-21 07:37] LABS: AGAP 13; ALB/GLOB RATIO 1.1; ALBUMIN 3.3 g/dL (3.5-5.0); ALKALINE PHOSPHATASE 138 U/L (32-122); BUN 7 mg/dL (8-22); CALCIUM 8.6 mg/dL (8.8-10.2); CHLORIDE 98 mmol/L (98-107); COSMO 269; CREATININE 0.7 mg/dL (0.7-1.2); ESTIMATED GFR > 60; GLUCOSE 115 mg/dL (70-104); GOT 29 U/L (10-34); GPT 22 U/L (10-44); POTASSIUM 3.7 mmol/L (3.5-5.1); SODIUM 135 mmol/L (136-145); TCO2 24 mmol/L (25-35); TOTAL BILIRUBIN 0.57 mg/dL (0.20-1.00); TOTAL PROTEIN 6.4 g/dL (6.3-8.3)
[2019-07-21] MEDS: LOFIBRA PO SCH (08:09)
[2019-07-21] MEDS ORDERED: M V I IV SCH ×6 (09:00)
[2019-07-21] MEDS ORDERED: MAGNESIUM SULFATE IV SCH ×6 (09:00)
[2019-07-21] MEDS ORDERED: FOLIC ACID IV SCH ×6 (09:00)
[2019-07-21] MEDS ORDERED: [UNRECOGNIZED DRUG - OTHER] IV SCH ×6 (09:00)
[2019-07-21] MEDS ORDERED: THIAMINE IV SCH ×6 (09:00)
[2019-07-21] MEDS: ZOSYN ONE (10:46)
--- NOTE | 2019-07-21 16:33 | PROGRESS NOTE ---
DATE: 07/21/2019 SUBJECTIVE: He looks better today. No pain. He still having a little bit of fever. He had 100 degrees temp yesterday at 3 but none since then.Cardiovascular: Regular rate and rhythm. Pulmonary: Bilateral breath sounds clear to auscultation. GI: Was soft, nontender, nondistended. Bowel sounds are positive. Now, his chest x-ray does show some lower lobe infiltrates, so this could be atelectasis versus pneumonia. We have a put him on Zosyn and I am going to keep that for the time being. Acute on chronic pancreatitis. That appears to be better. DISPOSITION: I think if he is afebrile tomorrow probably let him go home. cc: Rogelio Alvarado MD
[2019-07-21] MEDS: LOVENOX SUBQ SCH ×2 (20:03→23:07)
[2019-07-22] MEDS: ZOSYN 3.375 GM in NS 50 ML IV SCH ×4 (00:13→13:04)
[2019-07-22] MEDS: PROTONIX IV SCH ×2 (04:44→06:39)
[2019-07-22] MEDS: SODIUM CHLORIDE 0.9% INJ SCH (04:45)
[2019-07-22] MEDS: DILAUDID IV PRN ×2 (04:47→13:09)
[2019-07-22 06:31] LABS: BASO# 0.02 X1000 (0.0-0.2); BASO% 0.2 % (0.0-0.8); EOS# 0.48 X1000 (0.0-0.7); EOS% 4.1 % (0.0-10.0); HEMATOCRIT 40.3 % (42.0-52.0); HEMOGLOBIN 13.2 g/dL (14.0-18.0); IMM GRAN# 0.05 X1000 (0.0-0.04); IMM GRAN% 0.4 % (0.0-0.5); LYMPH# 1.02 X1000 (1.2-3.4); LYMPH% 8.7 % (20.5-51.1); MCH 30.3 PG (27-31); MCHC 32.8 g/dL (33-37); MCV 92.6 FL (81-99); MONO# 0.91 X1000 (0.11-0.59); MONO% 7.7 % (1.7-9.3); MPV 10.2 FL (7.4-10.4); NEUT# 9.29 X1000 (1.4-6.5); NEUT% 78.9 % (42.2-75.2); PLT 357 X1000 (130-400); RBC 4.35 XMIL (4.7-6.1); RDW 13.4 % (11.5-14.5); WBC 11.77 X1000 (4.8-10.8)
[2019-07-22 06:55] LABS: AGAP 13; ALB/GLOB RATIO 0.9; ALBUMIN 3.1 g/dL (3.5-5.0); ALKALINE PHOSPHATASE 134 U/L (32-122); BUN 9 mg/dL (8-22); CHLORIDE 98 mmol/L (98-107); COSMO 273; CREATININE 0.7 mg/dL (0.7-1.2); ESTIMATED GFR > 60; GLUCOSE 116 mg/dL (70-104); GOT 43 U/L (10-34); GPT 37 U/L (10-44); POTASSIUM 4.3 mmol/L (3.5-5.1); SODIUM 137 mmol/L (136-145); TCO2 26 mmol/L (25-35); TOTAL BILIRUBIN 0.55 mg/dL (0.20-1.00); TOTAL PROTEIN 6.6 g/dL (6.3-8.3)
[2019-07-22] MEDS: NORCO-7.5 PO PRN (09:08)
[2019-07-22] MEDS: LOFIBRA PO SCH (09:09)
[2019-07-22 15:04] VITALS: BP 109/73
[2019-07-22] MEDS: LR 1,000 ML IV SCH (16:25)
--- NOTE | 2019-07-22 18:39 | GASTROENTEROLOGY CONSULTATION ---
DATE: 07/22/2019 REASON FOR CONSULTATION: Abdominal pain, pancreatitis. HISTORY OF PRESENT ILLNESS: This is a 29-year-old male who came into the hospital with right upper quadrant abdominal pain, nausea, vomiting. He has also had some fever, highest documented fever since admission 100.0. Patient has been afebrile over the last several days. Information is obtained from the chart and some information from the patient, but due to language barrier, somewhat difficult, did use [facility] for some questions. The patient is still reporting some nausea. He is complaining of abdominal pain and has received pain medication. He had workup including CT scan and abdominal ultrasound that showed evidence of fatty infiltration of the liver and acute pancreatitis. PAST MEDICAL HISTORY: None significant. PAST SURGICAL HISTORY: None reported. ALLERGIES: No known drug allergies. HOME MEDICATIONS: No reported home medications prior to admission. SOCIAL HISTORY: Lives with family. Denied alcohol or tobacco use. REVIEW OF SYSTEMS: Per history of present illness. PHYSICAL EXAMINATION: Vital Signs: Temperature 98.6 degrees, pulse 88, respirations 16, blood pressure 123/78. General: Patient is awake, alert, in no acute distress. HEENT: Normocephalic, atraumatic. Pupils equal, round, reactive to light. Abdomen: With tenderness noted diffusely. Positive bowel sounds. Neurological: Cranial nerves 2 through 12 grossly intact. Extremities: No lower extremity edema noted. LABORATORY DATA: Hematology: WBC 11.77, hemoglobin 13.2, hematocrit 40.3, MCV 92.6, platelets 357,000. Chemistry: Sodium 137, potassium 4.3, chloride 98, CO2 26, BUN 9, creatinine 0.7, glucose 116, total bilirubin 0.55, AST 43, ALT 37, alkaline phosphatase 134, amylase 58, lipase 38. IMAGING STUDIES: Abdominal pelvis CT scan showed increased findings of acute pancreatitis. No pancreatic necrosis seen. No evidence of perforated ulcer. Ultrasound of the abdomen had showed fatty liver and questionable pancreatic nodule. ASSESSMENT AND PLAN: 1. Acute pancreatitis. Continue current management. Continue p.r.n. medications for pain or nausea. 2. Abdominal pain. Continue p.r.n. medications. 3. Fatty liver. 4. Recommend low-fat diet. Symptomatic treatment for pain and nausea. We will continue to follow and further plans will be made according to his progress. Patient was also seen by Dr. Chance. Dictated by RENETTA Souza for Raymundo Chance MD cc: RENETTA Francis MD
--- NOTE | 2019-07-22 23:57 | DISCHARGE SUMMARY ---
ADMISSION DATE: 07/15/2019 DISCHARGE DATE: 07/22/2019 DISCHARGE DIAGNOSES: 1. Acute pancreatitis due to chronic alcohol use. 2. Duodenitis. 3. Pneumonia, gram-negative type. CONSULTATIONS: Gastroenterology. BRIEF HOSPITAL COURSE: This is a 29-year-old male, no main major medical problems. He does drink alcohol regularly, although it has not been quantified. There was no evidence of gallstones. He had inflammation is his pancreas and his duodenum. He was made NPO, IV fluids, IV pain medication. He had a CT on the July 13, and a repeat CT on July 16, which showed persistent pancreatitis. He had a little bit of pleural effusions at that time. He had peripancreatic inflammation, edema, but no pseudocyst. His diet was slowly advanced. He was on LR, Protonix. He improved as far as that is concerned. Pain improved. His lipase went to normal at 43 on July 19. When he came in, his lipase was 1210. His amylase was only checked once on admission, it was 58. He did develop some fevers though starting around the up to 102, then 101. His chest x- ray, at that time, showed bibasilar infiltrates with pleural effusion. No white count. He was placed on Zosyn actually the day before, because he appeared a little bit toxic and he was having fevers and he has defervesced. He has not had a fever since July 19, and it was low-grade. In any case, he was tolerating p.o. without difficulty, pain was under control. He was felt stable for discharge. DISCHARGE MEDICATIONS: Tricor for 145 at bedtime, Augmentin 500 q.12 hours for another 7 days, [place] 7.5 q.6 hours p.r.n. pain, dispense 15, Prilosec 40 daily. It is presumed this is alcoholic, but I think it may be due to hypertriglyceridemia because his triglyceride level was over 1000 which, again, can be elevated in chronic alcohol use, but usually not to a level of 1580, typically with familial hypertriglyceridemia, the triglycerides may not be this elevated but I think that is what is causing this. We did go ahead and start Tricor, recommend follow up. He has some fatty infiltration of liver as well. DISCHARGE CONDITION: Stable. Told to avoid alcohol. TOTAL TIME: 32 minute discharge. cc: Rogelio Alvarado MD
== END 2019-07-22 17:51 | disposition home or self-care (01) | DRG 438 ==
LOC: ED 16:07 → SUATTDRO 21:03 → EDBD 21:03 → 4N 21:03
PROVIDERS: ATTEND Internal Medicine